=== PATIENT | male | born 1980 | race Caucasian/White ===

== ENCOUNTER 2019-04-27 09:41 | Inpatient (IN) | payer OTHER ==
[~2019-04-27] VITALS: Ht 180.3 cm; Wt 95.7 kg
[~2019-04-27 09:41] MED LIST: COL100 PO; DOXYCYCLINE MO100 MG PO; LAC PO; MOTRIN800 MG PO; NIC21 TD; NOR10T PO
[2019-04-27 09:45] VITALS: Ht 180.3 cm; Wt 95.7 kg
[2019-04-27 10:42] LABS: BASOPHIL % 0.1 % (0-2); PLATELET COUNT 148 x10^3mcL (130-400); RED CELL DISTRIBUTION WIDTH 13.8 % (11.5-14.5)
[2019-04-27 10:57] LABS: CALCIUM 8.2 mg/dL (8.5-10.1); CARBON DIOXIDE 28.3 mmol/L (21-32); CHLORIDE SERUM 100 mmol/L (98-107); GFR1 > 60 mL/min; GLUCOSE SERUM 98 mg/dL (74-106); POTASSIUM SERUM 4.3 mmol/L (3.5-5.1); SODIUM SERUM 138 mmol/L (136-145)
--- NOTE | 2019-04-27 10:57 | NUR ---
PT RESTING IN POC, URINE DIP OBTAINED. OFFICER AT BEDSIDE.
[2019-04-27 11:01] LABS: ALKALINE PHOSPHATASE 68 U/L (46-116); ALT/SGPT 46 U/L (16-63); AST/SGOT 34 U/L (15-37); BILIRUBIN TOTAL 1.41 mg/dL (0.20-1.00); LIPASE 100 IU/L (73-393)
--- NOTE | 2019-04-27 11:03 | NUR ---
MD AT BEDSIDE GIVING RESULTS OF CT. PT VERBALIZED UNDERSTANDING INCLUDING F/U CARE. PT STATES LAST MEAL WAS YESTERDAY.
--- NOTE | 2019-04-27 11:06 | NUR ---
LAB AT BEDSIDE
[2019-04-27 11:16] LABS: TOTAL PROTEIN, SERUM 8.3 g/dL (6.4-8.2)
--- NOTE | 2019-04-27 11:38 | NUR ---
OR AT BEDSIDE
--- NOTE | 2019-04-27 11:38 | NUR ---
REPORT CALLED TO SMITA, ALL QUESTIONS ADDRESSED AT THIS TIME
[2019-04-27 14:08] VITALS: BP 130/78
--- NOTE | 2019-04-27 14:56 | NUR ---
RECIEVED AIDA ALERT AND [id number] AND POST APPENDECTOMY AND HAD BEEN RUPTURED. HE WAS WITH PAIN ONLY FOR A DAY WHEN HE STARTED WITH CRAMPY PAIN. SHE WAS WORKING ON THE [employer] THE [employer] THE [employer]EN HE GOT ILL. HE WAS BROUGHT TO THE ER AND THENWENT TO THE OR. DR VILLEGAS DID THE PROCEDURE. HE NOW HAS RETURNED TO [facility] FLOOR AND HAD THREE INCISION SITES ALL COVERED BY A LARGE BANDAID EACH. NO DRAINAGE WAS SEEN AND PATIENT HAD RECEIVED DILAUDID IN THE RECOVERY ROOM AND IS COMFORTABLE AT THIS TIME. PATIENT HAS BEEN ON 02 AT 2 LITERS DUE TO HE WAS DESATING IN THE RECOVERY PRIOR TO COMING UP TO THE FLOOR. PATIENT ONLY HISTORY WAS CATARACT SURGERY AN SOME TESTICULAR PAIN ON PRIOR ADMISSIONS. PATIENT HAS NO KNOWN ALLERGIES AND HAS BEEN AMBULATORY AND VITALS STABLE AT SI TIME. VITALS AT THIS TIME AT 95, 95% ON 2 LITERS, AND 156, 130/78, 99.0. LABS ARE CA AT 8.2, TOTAL BILI AT 1.41, ANDTHE CT OF THE ABDOMEN SHOW ACUTE APPENDICITIS BUT NO ISSUES WITH OR STONES IN THE KIDNEYS. PATIENT IS TO HAVE A CLEAR LIQUID DIET TONIGHT AND GAURD AT BEDSIDE AND SECURITY MAINTAINED. LAST BM WAS TODAY AND HAD NAUSEA, VOMITING AND DIARRHEA PRIOR TO ADMISSION. WILL CONTINUE TO MONITOR IDNICATED.
--- NOTE | 2019-04-27 17:48 | NUR ---
APTIENT TOLERAT THE CLEAR LIQUID DIET AT THIS TIME. HE IS ASKING FOR MORE BROTH. SENT A MESSAGE. PATIENT HAS HAD GOOD EFFECT FROM THE MORPHINE GIVEN. GAHOLGERD AT BEDSIDE AND SECURITY MAINTAINED.
[2019-04-27 18:13] VITALS: BP 111/66
--- NOTE | 2019-04-27 19:05 | NUR ---
REPORT RECEIVED FROM DAY SHIFT RN. PATIENT WAS SEEN AND IS RESTING COMFORTABLY IN BED. NO DISTRESS NOTED. BREATHING EVEN AND UNLABORED ON 2L NC. NO SOB OR RESP DISTRESS NOTED. DENIES CHEST PAIN/PRESSURE. C/O ABD PAIN 4/ S/P SURGERY, BUT STATES IT'S TOLERABLE AT THIS TIME. IV TO THE LAC. SALINE LOCK. PATENT AND INTACT. NO REDNESS OR SWELLING NOTED. BANDAIDS X3 NOTED TO ABD, CDI. COMFORT AND SAFETY MEASURES IN PLACE. BED IS LOCKED AND IN THE LOWEST POSITIONS. SIDE RAILS UP X2. CALL LIGHT IS WITHIN REACH. WILL CONTINUE TO MONITOR.
[2019-04-27 20:46] VITALS: BP 108/62
--- NOTE | 2019-04-28 00:45 | NUR ---
C/O 01/30 TENDER ABD PAIN. PRN MORPHINE 1MG WAS ADMINISTERED PRESCRIBED. EDUCATED PATIENT ON PAIN MED AND POSS SIDE EFFECTS. PATIENT REPORTED THAT HE HAS PASSED GAS (FLATUS). VOIDED 625ML OF JEFF URINE. NO DISTRESS NOTED. BREATHING EVEN AND UNLABORED SATING 99% ON 2L NC. DECREASED TO 1L NC AND O2 SAT WENT DOWN TO 97%. PLACED O2 BACK ON 2L NC. SCD ON. SAFETY MEASURES IN PLACE. CALL LIGHT IS WITHIN REACH. WILL CONTINUE TO MONITOR.
--- NOTE | 2019-04-28 01:15 | NUR ---
RESTING IN BED WITH EYES CLOSED. EVEN AND SYMMETRIC CHEST RISE AND FALL. NO SIGNS OF DISTRESS NOTED. BREATHING EVEN AND UNLABORED ON 2L NC. NO SOB OR RESP DISTRESS NOTED. NO S/S OF PAIN NOTED. SAFETY MEASURES IN PLACE. SCD ON. CALL LIGHT IS WITHIN REACH. WILL CONTINUE TO MONITOR.
[2019-04-28 05:54] VITALS: BP 113/70
--- NOTE | 2019-04-28 05:57 | NUR ---
C/O 03/01 ABD PAIN. MEDICATED WITH PRN MORPHINE 1MG PER ORDER. MEDICATION EDUCATION GIVEN. NO DISTRESS NOTED. BREATHING EVEN AND UNLABORED. CALL LIGHT IS WITHIN REACH. WILL CONTINUE TO MONITOR.
--- NOTE | 2019-04-28 06:21 | NUR ---
RESTED IN LONG INTERVALS THROUGHOUT THE NIGHT. NO ACUTE CHANGES NOTED. NO DISTRESS NOTED. BREATHING EVEN AND UNLABORED ON 2L NC. NO SOB OR RESP DISTRESS NOTED. BANDAIDS TO ABD X3, CDI. PATIENT REPORTED HE HAS PASSED GAS. NO BM THROUGHOUT THE SHIFT. DENIES N/V. ABX THERAPY GIVEN THROUGHOUT THE NIGHT. NO ADVERSE REACTIONS NOTED. DENIES CHEST PAIN. C/O ABD PAIN X2 AND MEDICATED WITH PRN MORPHINE X2. SAFETY MEASURES IN PLACE. ENCOURAGED PATIENT TO AMBULATE THIS MORNING. VERBALIZED UNDERSTANDING. ALL NEEDS AND CONCERNS ADDRESSED. SAFETY MEASURES IN PLACE. CALL LIGHT IS WITHIN REACH. WILL ENDORSE CARE TO DAY SHIFT RN.
[2019-04-28 06:32] LABS: BASOPHIL % 0.2 % (0-2); RED CELL DISTRIBUTION WIDTH 13.8 % (11.5-14.5)
[2019-04-28 06:39] LABS: CALCIUM 7.8 mg/dL (8.5-10.1); CARBON DIOXIDE 29.1 mmol/L (21-32); CHLORIDE SERUM 103 mmol/L (98-107); GFR1 > 60 mL/min; GLUCOSE SERUM 93 mg/dL (74-106); POTASSIUM SERUM 4.6 mmol/L (3.5-5.1); SODIUM SERUM 138 mmol/L (136-145)
[2019-04-28 06:54] LABS: PLATELET COUNT 129 x10^3mcL (130-400)
--- NOTE | 2019-04-28 07:30 | NUR ---
RECEIVED PT FROM OIL FIELD LABORER RN. Devante/MILVIA. MED SURG. DENIES CHEST PAIN/PRESSURE. RESPIRATIONS EQUAL AND UNLABORED ON 2L NC. DENIES SOB AT THIS TIME. PT PROVIDED INCENTIVE SPIROMETER AND EDUCATED ON USE. PT RETURNED DEMONSTRATED USE. PT STATES PAIN TO ABDOMEN IS 7/10 PRESSURE TO MLQ. PT STATES MORPHINE DID NOT HELP WITH PAIN. MEDICATED PER EMAR. INCISIONS X3 COVERED WITH BANDAIDS WITH MINIMAL DRIED BLOOD, INTACT. PT DENIES ANY N/V AFTER EATING. PT ENCOURAGED TO AMBULATED TO HELP RELEIVE PRESSURE IN ABDOMEN. PT VERBALIZED UNDERSTANDING. ONE GUARD AT BEDSIDE. WILL CONTINUE TO MONITOR. CALL LIGHT IN REACH. BED IN LOWEST POSITION.
[2019-04-28 08:39] VITALS: BP 116/66
--- NOTE | 2019-04-28 09:12 | NUR ---
PT SITTING UP IN BED RESTING. NO ACUTE RESP DISTRESS NOTED ON 2L NC. PT DENIES SOB AT THIS TIME. O2 SAT CHECKED WAS 97%, PT PLACED ON RA. WILL RECHECK O2 SAT. PT STATES "I HAVE BEEN USING THE INCENTIVE SPIROMETER EVERY HOUR" PT STATES NORCO HELPED A LOT TO RELIEVE MY PAIN AND IS TOLERABLE AT THIS TIME. WILL CONTINUE TO MONITOR. CALL LIGHT IN REACH. BED IN LOWEST POSITION.
--- NOTE | 2019-04-28 10:44 | NUR ---
SPOKE WITH SAILOR RUTH ANN, PER RUTH ANN NEED TO FIND OUT IF PT NEEDS TO CONTINUE IV ANTIBIOTICS AND FOR HOW LONG IN ORDER TO FIND PLACEMENT FOR PT. WILL SPEAK WITH DR. VILLEGAS AND UPDATE RUTH ANN.
--- NOTE | 2019-04-28 11:30 | NUR ---
SPOKE WITH DR. VILLEGAS. DR. VILLEGAS INFORMED OF US ABDOMEN FINDING. PER DR. VILLEGAS PT IS OKAY TO BE DISCHARGED WITH ORAL ANTIBIOTICS. NO ORDER RECEIVED. DR. VILLEGAS STATES "IF PT CAN GET NE REMOVED AT [facility], PT DOES NOT NEED TO FOLLOW UP WITH HER" RUTH ANN SUGAR PRESSER MADE AWARE. CALLED DR. LOBO TO GET ORDER FOR ORAL ANTIBIOTICS, LEFT MESSAGE. AWAITING CALL BACK.
--- NOTE | 2019-04-28 12:09 | NUR ---
PT SITTING UP IN BED. NO ACUTE RESP DISTRESS NOTED ON RA. PT C/O PAIN 03/01 TO ABDOMEN OPERATIVE SITE PRESSURE. PT STATES PAIN IS INCREASING. MEDICATED PER EMAR. PT STATES HE HASN'T BEEN ABLE TO VOID SINCE THIS AM. PT STATES WHEN HE DID VOID THIS MORNING HE PEE'D ON AND OFF. PT DENIES ANY BLADDER PRESSURE. INFORMED PT TO VOID IN URINAL TO MONITOR URINE OUTPUT. IV ANTIBIOTICS INFUSING ORDERED. FLUSHED WELL. NO REDNESS OR SWELLING NOTED. WILL CONTINUE TO MONITOR. CALL LIGHT IN REACH. BED IN LOWEST POSITION.
--- NOTE | 2019-04-28 12:22 | NUR ---
SPOKE WITH DR. LOBO REGARDING DR. VILLEGAS RECOMMENDING PT BE SENT WITH ORAL ANTIBIOTICS. PER DR. LOBO WILL PUT IN ORDER FOR ORAL ANTIBIOTICS WITH DISCHARGE.
--- NOTE | 2019-04-28 12:51 | NUR ---
US THERAPEUTIC CONSULTANT AT BEDSIDE FOR US TESTICULAR. ASKED US THERAPEUTIC CONSULTANT TO CHECK PT BLADDER. NOTED 383 ML OF RESIDUAL URINE. CALLED DR. LOBO AND INFORMED HIM PT C/O DIFFICULTY VOIDING. PER DR. LOBO PT IS GOING BACK TO [facility] AND THEY CAN TAKE CARE OF HIM THERE.
--- NOTE | 2019-04-28 13:27 | NUR ---
ASSISTED PT OUT OF BED. ASSISTED TO BATHROOM. PT WAS ABLE TO VOID. PT STATES "I FEEL JUST SCARED TO PUT A LOT OF PRESSURE WHEN VOIDING BECAUSE OF THE PAIN" PT STATES PAIN INCREASES WHEN MOVING OR REPOSITIONING TO 8/10. PT STATES "I FEEL A LOT OF PRESSURE AND DISTENDED TO MY ABDOMEN" PT ENCOURAGED TO CONTINUE TO WALK TO HELP RELIEVE ANY GAS. PT VERBALIZED UNDERSTANDING. UPDATED RUTH ANN WELDER TECH THAT PT VOIDED. PER RUTH ANN PT IS BEING PICKED UP AT 1500. WILL CONTINUE TO MONITOR. CALL LIGHT IN REACH. BED IN LOWEST POSITION.
[2019-04-28 13:33] VITALS: BP 116/66
--- NOTE | 2019-04-28 13:59 | NUR ---
PT SITTING UP IN BED. NO ACUTE RESP DISTRESS NOTED ON RA. PT STATES PAIN TO ABDOMEN HAS DECREASED SINCE GOING BACK TO BED. PT GIVEN DISCHARGE INSTRUCTIONS. PT INFORMED HE WILL BE SENT BACK TO [facility] WITH AMOXICILLIN PO. BANDAIDS TO ABDOMINAL INCISION REMOVED MINIMAL DRIED BLOOD NOTED. PHOTO TAKEN. NO DRAINAGE NOTED. NE INTACT. APPLIED NEW BANDAIDS. PT ENCOURAGED TO CONTINUE LIGHT ACTIVITY AND EAT REGULAR DIET TOLERATED. PT ENCOURAGED TO MONITOR FOR SIGNS OF INFECTIONS SUCH DRAINAGE FROM INCISION SITE, BAD ODOR, HIGH FEVER. PT VERBALIZED UNDERSTANDING. ALL QUESTIONS AND CONCERNS ADDRESSED. PT INFORMED HE WILL BE MEDICATED WITH NORCO PRIOR TO DISCHARGE AND IV WILL BE REMOVED PRIOR TO LEAVING. PT VERBALIZED UNDERSTANDING. WILL CONTINUE TO MONITOR. CALL LIGHT IN REACH. BED IN LOWEST POSITION.
--- NOTE | 2019-04-28 18:50 | NUR ---
PT SITTING UP IN BED. NO ACUTE RESP DISTRESS NOTED ON RA. PT STATES PAIN HAS IMPROVED 4/10 SINCE RECEIVING PAIN MEDS. PT STATES HE ONLY FEELS PRESSURE TO RLQ. PT ENCOURAGED TO GET OUT OF BED AND AMBULATE. PT STATES "I WILL TRY BUT WHEN I GET UP THE PAIN IS TOO MUCH" IV SALINE LOCKED TO LAC. NO REDNESS OR SWELLING NOTED. WILL ENDORSE TO NURSE REVIEWER RN. CALL LIGHT IN REACH. BED IN LOWEST POSITION.
--- NOTE | 2019-04-28 20:02 | NUR ---
PATIENT RECEIVED AWAKE, ALERT, ORIENTED X4 IN BED. RESPIRATION EVEN AND UNLABORED, ON ROOM AIR. SALINE LOCK TO LEFT ANTECUBITAL AREA. DENIES PAIN AT THIS TIME. SURGICAL INCISION TO ABDOMEN X 3 WITH NE COVERED WITH BANDAID DRY AND INTACT. VOIDING FREELY. AMBULATORY. DEPUTY AT THE BEDSIDE. FOR DISCHARGE. AWAITING FOR TRANSPORTATION. WILL FOLLOW UP DISCHARGE.
--- NOTE | 2019-04-29 02:44 | NUR ---
PATIENT DISCHARGE TO [facility] IN STABLE CONDITION. DISCHARGED INSTRUCTION AND PACKET GIVEN TO DEPUTY.
== END 2019-04-29 02:45 | disposition other institution (70) | DRG 340 ==
LOC: ED 09:41 → MU 11:08
PROVIDERS: Emergency Medicine; Surgery; ADMIT Internal Medicine
PROC: 0DTJ4ZZ Resection of Appendix, Percutaneous Endoscopic Approach (ICD-10-PCS; principal; 2019-04-27 11:30)
DX: K35.32 Acute appendicitis with perforation, localized peritonitis, and gangrene, without abscess (principal); Z68.30 Body mass index [BMI] 30.0-30.9, adult
CPT/HCPCS: G0378; J0330; J1170; J2250; J2270; J2405; J2543; J2704; J2710; J3010; J3490; J7030; J7050; J7120; Q0092

== ENCOUNTER 2020-09-11 14:58 | Emergency (ER) | payer OTHER ==
[~2020-09-11] VITALS: Ht 180.3 cm; Wt 97.5 kg
[2020-09-11 15:11] VITALS: Ht 180.3 cm; Wt 97.5 kg
[2020-09-11 16:44] VITALS: BP 135/88
== END 2020-09-11 16:44 | disposition home or self-care (01) ==
LOC: ED 14:58
DX: L03.116 Cellulitis of left lower limb (principal)
CPT/HCPCS: J0696